=== PATIENT | female | born 1950 | race Caucasian/White ===

== ENCOUNTER 2016-10-23 08:10 | Inpatient (IN) | payer OTHER ==
--- NOTE | ~2016-10-23 | DS ---
Discharge Summary [facility] [address] [place]. [address] NAME: MIGDALIA LAKE : 50 STATUS : DIS IN PAT#: [id number] AGE: 66 ADM/REG DATE : 10/23/16 MR#: [id number] REPORT SERV DATE: 10/27/16 DICTATED BY: MIKE SALINAS DATE: 10/26/16 REPORT STATUS : Draft TRANSCRIBED BY: MARGARETH DATE: 10/26/16 ADMISSION DATE: 10/23/2016 DISCHARGE DATE: 10/26/2016 DIAGNOSES: 1. Noncardiac chest pain. 2. Debility. 3. Type 2 diabetes. 4. Hypertension. 5. Chronic pain management. 6. Anxiety. FOLLOWUP: The patient is to follow up with primary care physician in two weeks after rehab. CONSULTANTS: Cardiology with Dr. John. PROCEDURES: Cardiac cath on 10/23/2016, showing no significant coronary artery disease with a normal left ventricular end-diastolic filling pressure, ejection fraction of 60%. HOSPITAL COURSE: Please see H and P dictated by Dr. Noy Gill and discharge summary from Danica Salomon. This is a 66-year-old female with a past medical history of chronic narcotic pain management, also history of neuropathy, type 2 diabetes, presented to [facility] with complaint of persistent substernal chest pain. The patient's primary care is Dr. Mayco Yee. The patient was seen by her primary care in the past and was referred to Dr. Gresham, straddle buggy operator, for further assessment prior to her complaints of chest pain. Apparently, the patient was discharged from her pain management physician and the patient ran out of her pain medications. Her primary care did not feel comfortable writing for bridging narcotics and the patient was referred to the emergency department after complaints of chest discomfort reported per H and P. The patient had a 12-lead EKG that revealed incomplete right bundle branch block, right axis deviation. The patient reportedly had negative troponins while at [facility]. Cardiology was consulted and the patient was transferred to the [facility] for cardiac cath. The physicians at [facility] also were concerned of some opiate withdrawal prior to her transfer. The patient arrived to the [facility] and cardiac cath revealed normal coronary arteries and Cardiology signed off and recommended to continue with medical management, however, when the patient was to be discharged, the patient and had concerns of the patient returning to home stating the patient has not being able to get around well due to poor functional capacity and hard to get the patient from sitting to standing position per , and both were asking for inpatient rehab. Therefore, case management was consulted as well as physical therapy to assist for establishment for an inpatient rehab facility per the patient request. The patient was eventually approved for rehab at [facility]. Also during the patient's [facility] hospitalization, the patient did not have any signs of opiate withdrawal; however, the patient was already on her home dose of MS Contin and Percocet prior to her arrival, and this was continued during her hospital stay as well as her home dose of Ativan and BuSpar, although BuSpar dose was decreased. The patient was discharged to [facility] in stable condition to follow up with her primary care physician Discharge Summary [address] [place]. [address] NAME: MIGDALIA LAKE : 50 STATUS : DIS IN PAT#: [id number] AGE: 66 ADM/REG DATE : 10/23/16 MR#: [id number] REPORT SERV DATE: 10/27/16 DICTATED BY: MIKE SALINAS DATE: 10/26/16 REPORT STATUS : Draft TRANSCRIBED BY: MARGARETH DATE: 10/26/16 as an outpatient. DICTATED BY: Mike Salinas M.D. [facility]/MARGARETH Mike Salinas M.D. / [id number] CC: Jace Tuttle M.D. Andrew H Fowler, M.D.
[~2016-10-23 08:10] MED LIST: ASAB PO; ATV1 PO; BENTYL10 PO; BION TEARS OPH; BUSPAR10 PO; ENDOCET1 TA1 PO; FLONASE NAS; GLUCPH PO; HYZAAR 100/25 T1 TAB PO; IMDUR30 PO; IMOD PO; MSCONT15 PO; MYRBETRIQ50 MG PO; NEUR800 PO; PEPTO-BISMOL TA1 TAB PO; PERCOCET 7.5/321 TAB PO; PRILO PO; PROAIR HFA INH; T PO; TOPXL25 PO; Z300 PO
[2016-10-23 20:35] LABS: HEMATOCRIT 38.6 % (36.0-48.0); HEMOGLOBIN 11.8 g/dL (12.0-16.0); MEAN CORPUS HGB CONC 30.6 g/dL (32.0-36.0); MEAN CORPUSCULAR HEMOGLOB 26.9 pg (26.0-34.0); MEAN CORPUSCULAR VOLUME 88.1 fL (80-100); MEAN PLATELET VOLUME 9.8 fL (9.2-13.0); PLATELET COUNT 356 10/3/uL (150-400); RBC DISTRIBUTION WIDTH 15.3 % (12.0-16.0); RED CELL COUNT 4.38 10/6/uL (4.0-5.6); WHITE BLOOD CELLS 7.2 10/3/uL (4.5-10.5)
[2016-10-23 20:38] LABS: MANUAL DIFF YES %
[2016-10-23 20:52] LABS: BUN (BLOOD UREA NITROGEN) 11 MG/DL (6-23); CHLORIDE, SERUM 105 MMOL/L (96-112); CHOL/HDL RATIO(NOT ORDER) 3.1 (0-5); CHOLESTEROL 141 MG/DL (< 200); CO2 (CARBON DIOXIDE) 28 MMOL/L (24-34); CREATININE 0.95 MG/DL (0.55-1.02); GFR AFRICAN AMERICAN 72 ML/MIN (>=60); GFR NON AFRICAN AMERICAN 62 ML/MIN (>=60); GLUCOSE, SERUM 143 MG/DL (60-99); HDL CHOLESTEROL 45 MG/DL (> 49); LDL CHOLESTEROL 72 MG/DL (< 130); NON-HDL CHOLESTEROL 96 MG/DL (< 160); POTASSIUM, SERUM 4.1 MMOL/L (3.5-5.3); SODIUM, SERUM 138 MMOL/L (135-148); TRIGLYCERIDE 120 MG/DL (< 150)
[2016-10-23 21:00] LABS: BASOPHILS 1 %; BASOPHILS ABSOLUTE (CALC) 0.07 10/3/uL (0.0-0.16); EOSINOPHILS 5 %; EOSINOPHILS ABSOLUTE (CALC) 0.36 10/3/uL (0.0-0.53); LYMPHOCYTES 28 %; LYMPHOCYTES ABSOLUTE (CALC) 2.02 10/3/uL (0.67-4.30); MONOCYTES 9 %; MONOCYTES ABSOLUTE (CALC) 0.65 10/3/uL (0.21-1.20); PLATELET ESTIMATE ADQ (ADEQUATE); RBC MORPHOLOGY NORM (NORMAL); SEGMENTED NEUTROPHIL (0) 57 %; TOTAL NUCLEATED CELLS 100
[2016-10-24 04:50] LABS: BASOPHILS 0.4 %; BASOPHILS ABSOLUTE 0.03 10/3/uL (0.0-0.16); EOSINOPHILS 4.4 %; EOSINOPHILS ABSOLUTE 0.36 10/3/uL (0.0-0.53); HEMATOCRIT 41.9 % (36.0-48.0); HEMOGLOBIN 12.8 g/dL (12.0-16.0); IMMATURE GRANULOCYTES 0.4 %; IMMATURE GRANULOCYTES ABSOLUTE 0.03 10/3/uL (0.0-0.11); LYMPHOCYTES 37.5 %; LYMPHOCYTES ABSOLUTE 3.08 10/3/uL (0.67-4.30); MEAN CORPUS HGB CONC 30.5 g/dL (32.0-36.0); MEAN CORPUSCULAR HEMOGLOB 27.1 pg (26.0-34.0); MEAN CORPUSCULAR VOLUME 88.8 fL (80-100); MEAN PLATELET VOLUME 9.3 fL (9.2-13.0); MONOCYTES 7.9 %; MONOCYTES ABSOLUTE 0.65 10/3/uL (0.21-1.20); NEUTROPHILS 49.4 %; NEUTROPHILS ABSOLUTE 4.07 10/3/uL (2.02-8.40); PLATELET COUNT 400 10/3/uL (150-400); RBC DISTRIBUTION WIDTH 15.3 % (12.0-16.0); RED CELL COUNT 4.72 10/6/uL (4.0-5.6); WHITE BLOOD CELLS 8.2 10/3/uL (4.5-10.5)
[2016-10-24 04:51] LABS: MANUAL DIFF NO %
[2016-10-24 05:01] LABS: BUN (BLOOD UREA NITROGEN) 11 MG/DL (6-23); CALCIUM, SERUM 8.5 MG/DL (8.5-10.4); CHLORIDE, SERUM 106 MMOL/L (96-112); CO2 (CARBON DIOXIDE) 30 MMOL/L (24-34); GFR AFRICAN AMERICAN 77 ML/MIN (>=60); GFR NON AFRICAN AMERICAN 67 ML/MIN (>=60); POTASSIUM, SERUM 4.4 MMOL/L (3.5-5.3); SODIUM, SERUM 140 MMOL/L (135-148)
[2016-10-24 05:03] LABS: GLUCOSE, SERUM 113 MG/DL (60-99)
== END 2016-10-26 16:35 | DRG 287 ==
LOC: CORLMH 08:10 → SSU1 08:16 → 6NO 17:32
PROVIDERS: Internal Medicine
PROC: 4A023N7 Measurement of Cardiac Sampling and Pressure, Left Heart, Percutaneous Approach (ICD-10-PCS; principal; 2016-10-23)
PROC: B2111ZZ Fluoroscopy of Multiple Coronary Arteries using Low Osmolar Contrast (ICD-10-PCS; 2016-10-23)
PROC: B2151ZZ Fluoroscopy of Left Heart using Low Osmolar Contrast (ICD-10-PCS; 2016-10-23)
DX: R07.89 Other chest pain (principal); E11.42 Type 2 diabetes mellitus with diabetic polyneuropathy; E11.40 Type 2 diabetes mellitus with diabetic neuropathy, unspecified; F11.20 Opioid dependence, uncomplicated; E11.65 Type 2 diabetes mellitus with hyperglycemia; I10 Essential (primary) hypertension; G89.29 Other chronic pain; J45.909 Unspecified asthma, uncomplicated; F41.0 Panic disorder [episodic paroxysmal anxiety]; M06.9 Rheumatoid arthritis, unspecified; I45.10 Unspecified right bundle-branch block; K21.9 Gastro-esophageal reflux disease without esophagitis; I73.9 Peripheral vascular disease, unspecified; E66.9 Obesity, unspecified; Z68.33 Body mass index [BMI] 33.0-33.9, adult; Z79.899 Other long term (current) drug therapy; Z87.891 Personal history of nicotine dependence; Z88.1 Allergy status to other antibiotic agents; Z88.8 Allergy status to other drugs, medicaments and biological substances; Z90.710 Acquired absence of both cervix and uterus; Z98.890 Other specified postprocedural states
CPT/HCPCS: 71020; 78452; 80048; 80061; 80069; 82550; 82553; 82962; 83036; 83735; 83880; 84484; 85025; 85379; 85610; 85730; 93005; 93017; 93458; 96372; 97110-GO; 97110-GP; 97116-GP; 97162-GP; 97166-GO; 97535-GO; 99152; 99285; A9270-GY; A9502; C1769; C1887; C1894; G0378; J0280; J2250; J2785; J3010; Q9967

== ENCOUNTER 2016-11-08 21:53 | Emergency (ER) | payer OTHER ==
[2016-11-08 22:37] LABS: BASOPHILS 0.3 %; BASOPHILS ABSOLUTE 0.03 10/3/uL (0.0-0.16); EOSINOPHILS 0.8 %; EOSINOPHILS ABSOLUTE 0.08 10/3/uL (0.0-0.53); ER CBC TAT 0 Hrs 09 Mins; HEMATOCRIT 42.4 % (36.0-48.0); HEMOGLOBIN 13.5 g/dL (12.0-16.0); IMMATURE GRANULOCYTES 0.4 %; IMMATURE GRANULOCYTES ABSOLUTE 0.04 10/3/uL (0.0-0.11); LYMPHOCYTES 29.1 %; LYMPHOCYTES ABSOLUTE 2.97 10/3/uL (0.67-4.30); MANUAL DIFF NO %; MEAN CORPUS HGB CONC 31.8 g/dL (32.0-36.0); MEAN CORPUSCULAR HEMOGLOB 26.9 pg (26.0-34.0); MEAN CORPUSCULAR VOLUME 84.6 fL (80-100); MEAN PLATELET VOLUME 9.4 fL (9.2-13.0); MONOCYTES 5.1 %; MONOCYTES ABSOLUTE 0.52 10/3/uL (0.21-1.20); NEUTROPHILS 64.3 %; NEUTROPHILS ABSOLUTE 6.57 10/3/uL (2.02-8.40); PLATELET COUNT 469 10/3/uL (150-400); RBC DISTRIBUTION WIDTH 15.3 % (12.0-16.0); RED CELL COUNT 5.01 10/6/uL (4.0-5.6); WHITE BLOOD CELLS 10.2 10/3/uL (4.5-10.5)
[2016-11-08 22:45] LABS: INTERNATIONAL NORMAL RATI 1.1 UNITS (-); PARTIAL THROMBO TIME 28.6 SEC (22.5-37.2)
[2016-11-08 22:49] LABS: PROTIME (NOT ORD) 13.7 SEC (12.0-14.5)
[2016-11-08 22:54] LABS: BUN (BLOOD UREA NITROGEN) 8 MG/DL (6-23); CALCIUM, SERUM 9.4 MG/DL (8.5-10.4); CHEST PAIN PROFILE TAT 0 Hrs 26 Mins; CHLORIDE, SERUM 105 MMOL/L (96-112); CO2 (CARBON DIOXIDE) 29 MMOL/L (24-34); GFR AFRICAN AMERICAN 89 ML/MIN (>=60); GFR NON AFRICAN AMERICAN 77 ML/MIN (>=60); GLUCOSE, SERUM 121 MG/DL (60-99); SODIUM, SERUM 141 MMOL/L (135-148); TROPONIN I <0.02 NG/ML (<0.05)
[2016-11-08 22:56] LABS: POTASSIUM, SERUM 3.5 MMOL/L (3.5-5.3)
== END 2016-11-09 00:27 | disposition admitted as inpatient to this hospital (09) ==
LOC: ER 21:53
PROVIDERS: Emergency Medicine
DX: R07.89 Other chest pain (principal); G89.4 Chronic pain syndrome; R06.00 Dyspnea, unspecified; I10 Essential (primary) hypertension; K21.9 Gastro-esophageal reflux disease without esophagitis; E11.9 Type 2 diabetes mellitus without complications; Z88.1 Allergy status to other antibiotic agents; Z88.8 Allergy status to other drugs, medicaments and biological substances; Z79.82 Long term (current) use of aspirin; Z79.899 Other long term (current) drug therapy; Z79.891 Long term (current) use of opiate analgesic
CPT/HCPCS: 71020; 80048; 83735; 84484; 85025; 85610; 85730; 93005; 99285